=== PATIENT | female | born 1960 | race Caucasian/White ===

== ENCOUNTER 2018-11-08 09:01 | Inpatient (IN) ==
[2018-11-08 09:54] LABS: PROTIME 11.4 Seconds (11.0-16.0)
[2018-11-08 09:55] LABS: PTT 22.4 Seconds (22.3-41.8)
[2018-11-08 09:59] LABS: URINE SOURCE CLEAN CATCH
[2018-11-08 10:07] LABS: BILIRUBIN URINE NEGATIVE (NEGATIVE); BLOOD URINE NEGATIVE (NEGATIVE); COLOR YELLOW; GLUCOSE URINE NEGATIVE (NEGATIVE); KETONE URINE NEGATIVE (NEGATIVE); LEUKOCYTES URINE NEGATIVE (NEGATIVE); NITRITE URINE NEGATIVE (NEGATIVE); PROTEIN URINE TRACE mg/dL (NEGATIVE); SP GRAVITY URINE 1.022; TURBIDITY URINE CLEAR (CLEAR); UROBILINOGEN URINE NORMAL (NORMAL)
[2018-11-08 10:08] LABS: UR EPITHELIAL CELLS <10 /HPF (<10); URINE BACTERIA NEGATIVE /HPF; URINE RBC <10 /HPF (<10); URINE WBC <10 /HPF (<10)
--- NOTE | 2018-11-08 10:10 | Diag Imaging Result Doc PS360 ---
EXAM: CHEST-1 VIEW HISTORY: sob TECHNIQUE: Chest single view COMPARISON: 07/09/2018 FINDINGS: The lungs are well expanded. The heart is not enlarged. The vessels are not distended. There are no infiltrates. No effusion identified. IMPRESSION: Negative exam. Electronically signed by Alexsander Castano 11/08/2018 10:07 AM
[2018-11-08 10:14] LABS: BASO# 0.03 X1000 (0.0-0.2); BASO% 0.2 % (0.0-0.8); HEMATOCRIT 36.5 % (37.0-47.0); HEMOGLOBIN 12.5 g/dL (12.0-16.0); IMM GRAN# 0.22 X1000 (0.0-0.04); IMM GRAN% 1.3 % (0.0-0.5); INR 0.77; LYMPH# 1.12 X1000 (1.2-3.4); LYMPH% 6.6 % (20.5-51.1); MCH 34.2 PG (27-31); MCHC 34.2 g/dL (33-37); MCV 99.7 FL (81-99); MONO# 0.78 X1000 (0.11-0.59); MONO% 4.6 % (1.7-9.3); MPV 8.9 FL (7.4-10.4); NEUT# 14.84 X1000 (1.4-6.5); NEUT% 87.3 % (42.2-75.2); PLT 310 X1000 (130-400); RBC 3.66 XMIL (4.2-5.4); RDW 15.2 % (11.5-14.5); WBC 16.99 X1000 (4.8-10.8)
[2018-11-08 10:16] LABS: ALB/GLOB RATIO 2.4; ALBUMIN 4.3 g/dL (3.5-5.0); CALCIUM 9.3 mg/dL (8.8-10.2); POTASSIUM 4.6 mmol/L (3.5-5.1); TOTAL BILIRUBIN 0.19 mg/dL (0.20-1.00); TOTAL PROTEIN 6.1 g/dL (6.3-8.3)
[2018-11-08 10:16] LABS: ALLEN TEST YES; BE -0.5 mmoll (-3.0-3.0); BLOOD TYPE ARTERIAL; HCO3-(ACT) 24.5 mmoll (20.0-26.0); METHB 1.1 % (0.0-1.5); O2(CT) 16.7 mL/dL (15.0-23.0); PCO2(98.6) 21 mmHg (35-45); PO2(98.6) 108 mmHg (60-100); SAMPLE BLOOD; SAO2 99.8 % (95.0-100.0); THB 12.1 g/dL (11.5-17.4)
[2018-11-08 10:17] LABS: MODALITY ROOM AIR
[2018-11-08 10:18] LABS: pH(98.6) 7.58 (7.35-7.45)
[2018-11-08 10:18] LABS: BANDS 2 % (0-1); LYMPHS 8 % (21-51); MONO 2 % (1-9); SEGS 86 % (42-75)
[2018-11-08] MEDS ORDERED: TORADOL IV ONE (10:24)
--- NOTE | 2018-11-08 11:22 | Diag Imaging Result Doc PS360 ---
EXAM: CT ANGIOGRM PULMONARY ARTERIES HISTORY: difficulty breathing, left arm swollen TECHNIQUE: Emergency CT of the chest with intravenous contrast. Pulmonary arterial protocol with MIP images. COMPARISON: 05/15/2018 FINDINGS: Normal opacification of the pulmonary arteries and their major branches. No aortic aneurysm or dissection. No cardiomegaly. No pleural effusions. A calcified mediastinal and right hilar nodes with scattered granuloma. No consolidation. No bronchiectasis. No definite pulmonary edema. IMPRESSION: No pulmonary emboli. There is evidence of a prior granulomatous infection. This exam was performed using automated exposure control, adjustment of mA or kV according to patient size, and/or use of iterative reconstruction technique. Electronically signed by Alexsander Castano 11/08/2018 11:19 AM
[2018-11-08] MEDS ORDERED: DUONEB (A & A) INH ONE (12:28)
[2018-11-08] MEDS ORDERED: DILAUDID IV ONE (13:30)
[2018-11-08] MEDS ORDERED: ZOFRAN IV ONE (13:30)
[2018-11-08] MEDS ORDERED: ROCEPHIN 1 GM in NS 50 ML IV ONE (13:42)
--- NOTE | 2018-11-08 13:53 | PROVIDER DOCUMENTATION ---
This chart was entered by Anel Guevara Scribe, acting as scribe for Dominick Cid MD. HPI-Respiratory General - General Chief Complaint: SEPSIS ALERT - D Stated Complaint: SOB Time Seen by Provider: 11/08/18 09:23 Source: patient Allergies/Adverse Reactions: Patient Allergies Allergy/AdvReac Type Severity Reaction Status Date / Time No Known Allergies Allergy Verified 08/20/18 09:42 Home Medications: Home Medication List Medication Instructions Recorded Confirmed Last Taken Type Estrogens, Conjugated [Premarin] 1.25 mg PO DAILY 07/01/14 05/15/18 05/14/18 History ATORVAstatin [Lipitor] 20 mg PO DAILY 12/28/16 05/15/18 05/14/18 History Levothyroxine [Synthroid] 175 microgm PO DAILY 10/06/17 05/15/18 05/14/18 History Pantoprazole [Protonix] 40 mg PO DAILY@0700 #60 tab 10/15/17 05/15/18 05/14/18 Rx Cyclobenzaprine HCl 1 tab PO TID PRN 02/01/18 05/15/18 05/14/18 History Diltiazem HCl 1 tab PO TID 02/01/18 05/15/18 05/14/18 History Doxepin HCl 1 cap PO DAILY 02/01/18 05/15/18 05/14/18 History Hydroxyzine Pamoate [Vistaril] 50 mg PO Q6H PRN PRN 02/01/18 05/15/18 05/14/18 History Lisinopril 10 mg PO DAILY 02/01/18 05/15/18 05/14/18 History Lorazepam 1 tab PO TID 02/01/18 05/15/18 05/14/18 History Buprenorphine/Naloxone S.l. 1 ea SL BID #60 film 02/03/18 05/15/18 05/14/18 Rx [Suboxone 8 mg/2 mg Film] Metoclopramide [Reglan] 2.5 mg PO AC + HS #90 tab 05/20/18 Unknown Rx Nicotine Patch [Nicoderm Patch] 21 mg TD DAILY patch.td24 05/20/18 Unknown Rx Polyethylene Glycol 3350 [Miralax] 17 gm PO BID powder, packet 05/20/18 Unknown Rx Azithromycin [Zithromax Z-Heber] 250 mg PO DIRECTED #1 pkg 07/09/18 Unknown Rx Benzonatate [Tessalon Perle] 100 mg PO DAILY 10 Days #10 cap 07/09/18 Unknown Rx Doxycycline 100 mg PO BID 5 Days #10 tab 07/09/18 Unknown Rx Chlorzoxazone [Parafon Forte] 500 mg PO TID #30 tab 08/20/18 Unknown Rx Lidocaine [Lidoderm] 1 ea TOPICAL DAILY #1 pkg 08/20/18 Unknown Rx Ondansetron [Zofran] 4 mg PO Q6H PRN PRN #20 tab 08/20/18 Unknown Rx Prednisone 20 mg PO DIRECTED #18 tab 08/20/18 Unknown Rx Prednisone 50 mg PO DAILY #4 tab 08/20/18 Unknown Rx - History of Present Illness-Resp Nature of Presenting Problem: Patient is a 58 year old female who presents with shortness of breath and cough that started 1 week ago. Patient states she is currently on her third day of Levaquin. Denies fever. Quality of Pain: reports: tightness Severity in ED: reports: mild Onset/Duration: reports: 1 week ago Timing: reports: still present Cough Quality/Degree: reports: moderate Current Respiratory Medication Therapy: Initiated see nurses note Modifying Factors: improves with: nothing Associated Symptoms: reports: cough, shortness of breath Similar Symptoms Previously?: Yes Recently seen or treated by another doctor?: Yes Review of Systems - Adult - REVIEW OF SYSTEMS - ADULT Constitutional: reports: no symptoms reported. denies: chills, fever, fatique Eyes: reports: no symptoms reported Ears, Nose, Mouth & Throat: reports: no symptoms reported. denies: ear pain, sinus problem, throat pain Cardiovascular: reports: no symptoms reported Respiratory: reports: see HPI, cough, shortness of breath. denies: wheezing Gastrointestinal: reports: no symptoms reported Genitourinary: reports: no symptoms reported Musculoskeletal: reports: no symptoms reported Integumentary: reports: no symptoms reported Neurological: reports: no symptoms reported Psychiatric: reports: no symptoms reported Endocrine: reports: no symptoms reported Hematologic/Lymphatic: reports: no symptoms reported Allergic/Immunologic: reports: no symptoms reported All Other Systems: Reviewed and Negative Past History - Adult - PAST MEDICAL HISTORY-ADULT Review of Records: reports: Nursing Assessment Review, Medications Reviewed, Social history reviewed & non-contributory. Major Childhood Illnesses: reports: denies history Cardiovascular: reports: HTN, hyperlipidemia Respiratory: reports: denies history Gastrointestinal: reports: GERD Obstetrical/Gynecological: reports: ectopic , other (breast mass) Genitourinary: reports: denies history Musculoskeletal: reports: chronic pain, intervertebral disc disease, neck/back injury Neurological: reports: headaches/migraines Psychiatric: reports: anxiety, depression Endocrine/Immune: reports: thyroid disorder Other Conditions: reports: denies history - PRIOR SURGERIES/PROCEDURES Surgical/Procedure History: reports: appendectomy, cholecystectomy, hysterectomy , , hernia repair, breast - PRIOR HOSPITALIZATIONS Prior Hospitalizations: reports: for similar symptoms - IMMUNIZATION STATUS Childhood Immunizations: See Nurse Assessment Flu Vaccine: See Nurse Assessment - FAMILY HISTORY Family History: reviewed, not pertinent - SOCIAL HISTORY Smoking: cigarettes, less than 1 pack/day Provider spent 3-5 mins advising pt. on dangers of tobacco.: Discussed manners to quit use, and f/u contacts for add'l counseling. Substance Use: denies Physical Exam-General - PHYSICAL EXAM-ADULT Initial Vital Signs Reviewed: Yes - CONSTITUTIONAL General Appearance: alert, no apparent distress. negative: lethargic, slow to respond - HEAD, EARS, NOSE, MOUTH & THROAT HENMT: moist mucous membranes. negative: angioedema, hearing deficit - RESPIRATORY Respiratory: chest non-tender, rhonchi (bilateral). negative: respiratory distress, accessory muscle use, crackles - CARDIOVASCULAR Cardiovascular: normal peripheral pulses, regular rate, rhythm. negative: tachycardia, systolic murmur - GASTROINTESTINAL (ABDOMEN) Abdominal Exam: normal bowel sounds, non tender, soft. negative: guarding, rebound - MUSCULOSKELETAL Extremity: non-tender, normal inspection. negative: deformity, erythema - SKIN Integumentary: normal color, normal turgor, warm/dry. negative: cyanosis, ecchymosis, erythema, jaundice - NEUROLOGIC Neurologic: grossly normal. negative: aphasia, facial droop - PSYCHIATRIC Psych/Mental Status: normal mood/affect, oriented x 3. negative: anxious Progress - PLAN OF CARE/RESULTS Progress/Plan/Lab Results: Vital Signs - 8 hr 11/08/18 09:05 11/08/18 09:15 11/08/18 09:16 Temperature 97.9 F Pulse Rate 91 H 115 H 109 H Respiratory Rate 24 14 17 Blood Pressure 130/84 138/96 O2 Sat by Pulse Oximetry 98 99 99 11/08/18 09:20 11/08/18 09:30 11/08/18 09:40 Temperature Pulse Rate 105 H 105 H 100 H Respiratory Rate 23 22 26 H Blood Pressure O2 Sat by Pulse Oximetry 97 97 98 11/08/18 09:58 11/08/18 10:00 11/08/18 10:03 Temperature Pulse Rate 105 H 93 H Respiratory Rate 20 22 Blood Pressure 122/88 O2 Sat by Pulse Oximetry 99 100 98 11/08/18 10:04 11/08/18 10:10 11/08/18 10:19 Temperature Pulse Rate 98 H 96 H Respiratory Rate 18 26 H Blood Pressure O2 Sat by Pulse Oximetry 97 97 100 11/08/18 10:20 11/08/18 10:39 11/08/18 10:40 Temperature Pulse Rate 96 H 84 Respiratory Rate 19 23 Blood Pressure O2 Sat by Pulse Oximetry 99 100 100 11/08/18 10:50 11/08/18 11:00 11/08/18 11:02 Temperature Pulse Rate 85 89 93 H Respiratory Rate 18 22 21 Blood Pressure 121/83 O2 Sat by Pulse Oximetry 98 96 98 11/08/18 11:10 11/08/18 11:20 11/08/18 11:30 Temperature Pulse Rate 95 H 100 H 98 H Respiratory Rate 22 12 19 Blood Pressure O2 Sat by Pulse Oximetry 96 97 96 11/08/18 11:32 11/08/18 11:44 11/08/18 11:50 Temperature Pulse Rate 86 86 90 Respiratory Rate 24 18 18 Blood Pressure 131/85 O2 Sat by Pulse Oximetry 97 100 96 11/08/18 12:00 11/08/18 12:03 11/08/18 12:10 Temperature Pulse Rate 96 H 85 84 Respiratory Rate 21 20 16 Blood Pressure 112/89 O2 Sat by Pulse Oximetry 96 98 98 11/08/18 12:20 11/08/18 12:30 11/08/18 12:33 Temperature Pulse Rate 93 H 83 78 Respiratory Rate 19 24 20 Blood Pressure 119/75 O2 Sat by Pulse Oximetry 94 L 99 99 Laboratory Results - last 24 hr 11/08/18 11/08/18 11/08/18 09:32 09:32 09:32 WBC 16.99 H RBC 3.66 L Hgb 12.5 Hct 36.5 L MCV 99.7 H MCH 34.2 H MCHC 34.2 RDW Std Deviation 15.2 H Plt Count 310 MPV 8.9 Immature Gran % (Auto) 1.3 H Neut % (Auto) 87.3 H Lymph % (Auto) 6.6 L Gem % (Auto) 4.6 Eos % (Auto) 0.0 Baso % (Auto) 0.2 Immature Gran # (Auto) 0.22 H Neut # (Auto) 14.84 H Lymph # (Auto) 1.12 L Gem # (Auto) 0.78 H Eos # (Auto) 0.00 Baso # (Auto) 0.03 Segmented Neutrophils 86 H Band Neutrophils 2 H Lymphocytes 8 L Monocytes 2 Myelocytes 2.0 PT 11.4 INR 0.77 PTT (Actin FS) 22.4 Specimen Type Sample Site pH pCO2 pO2 HCO3 Base Excess Oxyhemoglobin ABG O2 Sat (Calculated) ABG O2 Saturation ABG Carboxyhemoglobin ABG Methemoglobin Mason Test A-a O2 Difference Total Hemoglobin Lactate Blood Gas Modality FiO2 % Sodium 138 Potassium 4.6 Chloride 103 Carbon Dioxide 19 L Anion Gap 16 BUN 34 H Creatinine 1.0 H Estimated GFR/1.73 m2 57 BUN/Creatinine Ratio 34 Glucose 125 H Calculated Osmolality 285 Calcium 9.3 Total Bilirubin 0.19 L AST 16 ALT 17 Alkaline Phosphatase 44 Creatine Kinase 45 Troponin T [id number]-[id number]-Fpxkbjjedjv Pept Total Protein 6.1 L Albumin 4.3 Globulin 1.8 Albumin/Globulin Ratio 2.4 Plasma Lactate Urine Source Urine Color Urine Turbidity Urine pH Ur Specific [place] Urine Protein Ur Glucose (Stick) Ur Ketones (Stick) Urine Blood Urine Nitrite Urine Bilirubin Urobilinogen Dipstick Urine Leukocytes Urine WBC (Auto) Urine RBC (Auto) U Epithel Cells (Auto) Urine Bacteria (Auto) 11/08/18 11/08/18 11/08/18 09:32 09:32 09:32 WBC RBC Hgb Hct MCV MCH MCHC RDW Std Deviation Plt Count MPV Immature Gran % (Auto) Neut % (Auto) Lymph % (Auto) Gem % (Auto) Eos % (Auto) Baso % (Auto) Immature Gran # (Auto) Neut # (Auto) Lymph # (Auto) Gem # (Auto) Eos # (Auto) Baso # (Auto) Segmented Neutrophils Band Neutrophils Lymphocytes Monocytes Myelocytes PT INR PTT (Actin FS) Specimen Type Sample Site pH pCO2 pO2 HCO3 Base Excess Oxyhemoglobin ABG O2 Sat (Calculated) ABG O2 Saturation ABG Carboxyhemoglobin ABG Methemoglobin Mason Test A-a O2 Difference Total Hemoglobin Lactate Blood Gas Modality FiO2 % Sodium Potassium Chloride Carbon Dioxide Anion Gap BUN Creatinine Estimated GFR/1.73 m2 BUN/Creatinine Ratio Glucose Calculated Osmolality Calcium Total Bilirubin AST ALT Alkaline Phosphatase Creatine Kinase Troponin T < 0.010 Dma-T-Hwnhcowdhac Pept 139 Total Protein Albumin Globulin Albumin/Globulin Ratio Plasma Lactate 2.0 Urine Source Urine Color Urine Turbidity Urine pH Ur Specific [place] Urine Protein Ur Glucose (Stick) Ur Ketones (Stick) Urine Blood Urine Nitrite Urine Bilirubin Urobilinogen Dipstick Urine Leukocytes Urine WBC (Auto) Urine RBC (Auto) U Epithel Cells (Auto) Urine Bacteria (Auto) 11/08/18 11/08/18 11/08/18 09:54 10:07 12:19 WBC RBC Hgb Hct MCV MCH MCHC RDW Std Deviation Plt Count MPV Immature Gran % (Auto) Neut % (Auto) Lymph % (Auto) Gem % (Auto) Eos % (Auto) Baso % (Auto) Immature Gran # (Auto) Neut # (Auto) Lymph # (Auto) Gem # (Auto) Eos # (Auto) Baso # (Auto) Segmented Neutrophils Band Neutrophils Lymphocytes Monocytes Myelocytes PT INR PTT (Actin FS) Specimen Type ARTERIAL Sample Site R RADIAL pH 7.58 H* pCO2 21 L pO2 108 H HCO3 24.5 Base Excess -0.5 Oxyhemoglobin 97.0 ABG O2 Sat (Calculated) 16.7 ABG O2 Saturation 99.8 ABG Carboxyhemoglobin 1.70 ABG Methemoglobin 1.1 Mason Test YES A-a O2 Difference 15.0 Total Hemoglobin 12.1 Lactate 2.00 Blood Gas Modality ROOM AIR FiO2 % 21.0 Sodium Potassium Chloride Carbon Dioxide Anion Gap BUN Creatinine Estimated GFR/1.73 m2 BUN/Creatinine Ratio Glucose Calculated Osmolality Calcium Total Bilirubin AST ALT Alkaline Phosphatase Creatine Kinase Troponin T Ywn-M-Wxbuunvyepr Pept Total Protein Albumin Globulin Albumin/Globulin Ratio Plasma Lactate 2.3 H Urine Source CLEAN CATCH Urine Color YELLOW Urine Turbidity CLEAR Urine pH 6.0 Ur Specific [place] 1.022 Urine Protein TRACE A Ur Glucose (Stick) NEGATIVE Ur Ketones (Stick) NEGATIVE Urine Blood NEGATIVE Urine Nitrite NEGATIVE Urine Bilirubin NEGATIVE Urobilinogen Dipstick NORMAL Urine Leukocytes NEGATIVE Urine WBC (Auto) <10 Urine RBC (Auto) <10 U Epithel Cells (Auto) <10 Urine Bacteria (Auto) NEGATIVE Orders Category Date Time Status Cardiac Monitoring DIRECTED Care 11/08/18 09:13 Active IV Insertion ORDERED Care 11/08/18 09:13 Completed Notify MD of + Sepsis Screen NOW Care 11/08/18 09:13 Active Notify Physician As Ordered Care 11/08/18 09:13 Active CHEST-1 VIEW [RAD] Stat Exams 11/08/18 09:[address] ANGIOGRM PULMONARY ARTERIES [CT] Stat Exams 11/08/18 10:12 Completed ABG [RESP] Routine Lab 11/08/18 10:07 Completed BLOOD CULTURE [BLDCUL] Stat Lab 11/08/18 09:38 Results BNP [PRO B-NATRIURETIC PEPTIDE] Stat Lab 11/08/18 09:32 Completed CBC WITH DIFF [HEME] Stat Lab 11/08/18 09:32 Completed CK PROFILE [SP CHEM] Stat Lab 11/08/18 09:32 Completed COMPREHENSIVE METABOLIC PANEL [CHEM] Stat Lab 11/08/18 09:32 Completed D-DIMER [COAG] Stat Lab 11/08/18 13:48 Uncollected LACTATE, PLASMA [CHEM] Lab 11/08/18 09:32 Completed LACTATE, PLASMA [CHEM] Lab 11/08/18 12:19 Completed LACTATE, PLASMA [CHEM] Lab 11/08/18 15:15 Uncollected PROTIME WITH INR [COAG] Stat Lab 11/08/18 09:32 Completed PTT [COAG] Stat Lab 11/08/18 09:32 Completed TROPONIN T Stat Lab 11/08/18 09:32 Completed URINALYSIS W/POSS RFLX CULT [URINALYSIS] Stat Lab 11/08/18 09:54 Completed Albuterol 2.5MG/Ipratrop 0.5MG [Duoneb (A & A)] Med 11/08/18 12:28 Discontinued 3 ml INH NOW ONE CefTRIAXONE [Rocephin] 1 gm Med 11/08/18 13:42 Active 0.9% Sodium Chloride Inj [Ns] 50 ml IV NOW Hydromorphone [Dilaudid] Med 11/08/18 13:30 Discontinued 0.5 mg IV NOW ONE Ketorolac [Toradol] Med 11/08/18 10:24 Discontinued 15 mg IV NOW ONE Ondansetron [Zofran] Med 11/08/18 13:30 Discontinued 4 mg IV NOW ONE Aerosol Treatments Routine Ot 11/08/18 12:28 Active Aerosol Treatments Stat [facility] 11/08/18 12:28 Active Oxygen Device Stat [facility] 11/08/18 09:13 Completed Result Diagrams: 11/08/18 09:32 11/08/18 09:32 - EKG 1 Time of EKG reading by physician:: 09:15 EKG Read and Signed by:: Dominick Cid EKG Interpretation (*Must complete 3 of following elements*): Abnormal Rate: 109 Rhythm: sinus tachycardia [place]: normal [place] Interval: normal Comments: otherwise normal ECG - XRAY 1 XRAY Study: Chest Impression: See EMR Report (EXAM: CHEST-1 VIEW HISTORY: sob TECHNIQUE: Chest single view COMPARISON: 07/09/2018 FINDINGS: The lungs are well expanded. The heart is not enlarged. The vessels are not distended. There are no infiltrates. No effusion identified. IMPRESSION: Negative exam. Electronically signed by Alexsander Castano 11/08/2018 10:07 AM 11/08/18 1007 Interpreting Physician: Alexasnder Castano MD Dictated Date/Time: 11/08/18 1007 cc: Dominick Cid MD; Berhane Reyes) - CT/MRI 1 CT Study: Angiogram Impression: See EMR Report ( EXAM: CT ANGIOGRM PULMONARY ARTERIES HISTORY: difficulty breathing, left arm swollen TECHNIQUE: Emergency CT of the chest with intravenous contrast. Pulmonary arterial protocol with MIP images. COMPARISON: 05/15/2018 FINDINGS: Normal opacification of the pulmonary arteries and their major branches. No aortic aneurysm or dissection. No cardiomegaly. No pleural effusions. A calcified mediastinal and right hilar nodes with scattered granuloma. No consolidation. No bronchiectasis. No definite pulmonary edema. IMPRESSION: No pulmonary emboli. There is evidence of a prior granulomatous infection. This exam was performed using automated exposure control, adjustment of mA or kV according to patient size, and/or use of iterative reconstruction technique. Electronically signed by Alexsander Castano 11/08/2018 11:19 AM 11/08/18 1119 Interpreting Physician: Alexsander Castano MD Dictated Date/Time: 11/08/18 1117 cc: Dominick Cid MD; Berhane Reyes) - CONSULTS/PCP/HOSPITALIST Notification #1 *Consult/PCP/Hospitalist*: ANDRES Blackwell for Hospitalist Time Discussed: 13:47 Reason/Comments: Dr. Cid consulted Rishi about patient. Consult Disposition: Will see in ED, Admit Departure - Departure Date of Disposition Decision: 11/08/18 Time of Disposition Decision: 13:47 DIAGNOSIS: SOB (shortness of breath), Lactate blood increase Disposition: ADMITTED INPATIENT 09 Certified Medical Emergency: Emergent Condition: Fair Referrals and Follow-Ups: Berhane Reyes [Primary Care Provider] - - Critical Care Note This patient required my direct & personal management of CC.: No Attestation - Physician/ BREE Attestation Patient care was provided by Advanced Practice Provider:: No The physician spent face to face time with patient:: Yes Advanced Practice Provider documentation review:: Supervising physician onsite and consulted in the evaluation and care of this patient. The physician did have a face to face encounter with the patient. This chart was documented by the indicated scribe, (Anel Guevara Scribe) and accurately reflects the services I performed and decisions made by me, Dominick Cid MD, as attested by the provider's signature.
[2018-11-08] MEDS ORDERED: XOPENEX NEB INH PRN (14:58)
[2018-11-08] MEDS ORDERED: TYLENOL PO PRN (14:58)
[2018-11-08] MEDS ORDERED: NS 1,000 ML IV ONE (14:58)
[2018-11-08] MEDS: NICODERM PATCH TD SCH (15:15)
[2018-11-08] MEDS: XOPENEX NEB INH SCH ×3 (15:30→22:47)
[2018-11-08] MEDS: ZITHROMAX 500 MG/NS 500 MG/250 ML IVPB IV SCH (15:38)
[2018-11-08] MEDS: SOLU-MEDROL IV SCH ×3 (15:38→23:45)
[2018-11-08] MEDS: LOVENOX SUBQ SCH (15:40)
--- NOTE | 2018-11-08 16:12 | HISTORY AND PHYSICAL ---
PRIMARY CARE PHYSICIAN: Dr. Berhane Reyes. CHIEF COMPLAINT: Shortness of breath. HISTORY OF PRESENT ILLNESS: Mrs. Duffy is a 58-year-old female with a history of chronic pain, hypertension, anxiety, depression, and nicotine dependence who presents with a little more than one week of shortness of breath, cough, and wheezing. She went to Dr. Reyes's office the week before last for shortness of breath, cough, and wheezing. She was given a Zithromax and steroid dose pack. Her symptoms never improved and in fact got somewhat worse. She went to a walk-in clinic over the weekend and was given Levaquin and another dose pack. Symptoms failed to improve once again and she came to our ER today for evaluation. She denies any fever. No chest pain. No abdominal pain, nausea, or vomiting. No lower extremity edema or orthopnea. She just has dyspnea, worse with exertion, and wheezing. In the ER her labs showed a white count of 17,000. She had a respiratory alkalosis and a very minimal increase in her plasma lactate at 2.3. As of now, no infection can be objectively found. We will admit her for further treatment and evaluation. PAST MEDICAL HISTORY: 1. Chronic back pain, status post L spine surgery x3. 2. Essential hypertension. 3. Anxiety and depression. 4. Chronic constipation. 5. Hypothyroidism. PAST SURGICAL HISTORY: L spine x3, cholecystectomy, thyroidectomy, breast biopsy, C section, hernia repair, and tubal ligation. SOCIAL HISTORY: She smokes half a pack of cigarettes a day. She denies alcohol or drug use. ALLERGIES: No known drug allergies. HOME MEDICATIONS: Yet been compiled by the nursing staff. REVIEW OF SYSTEMS: A 14-point review of systems was obtained and found to be negative with the exception of the HPI. PHYSICAL EXAMINATION: VITAL SIGNS: Blood pressure 115/67, heart rate 70, respiratory rate 18, O2 saturation 98% on nasal cannula, temperature 97.9. GENERAL: This is an overweight, somewhat disheveled appearing, 58-year-old female lying in hospital bed in no acute distress. NEUROLOGICAL: She is awake, alert, and oriented. Follows commands without focal deficits. HEENT: Head is atraumatic and normocephalic. Pupils are equal, round and reactive to light. Oral mucosa is dry. NECK: Trachea is midline. There is no JVD. CHEST: Inspiratory and expiratory wheezes bilaterally. CARDIOVASCULAR: Slightly tachycardic but regular. S1 and S2 are noted. No murmurs. GASTROINTESTINAL: Soft. Nondistended and nontender. Bowel sounds are active. EXTREMITIES: No edema. Pulses are 1+ bilaterally. DIAGNOSTIC DATA: Chest x-ray shows no acute process. Pulmonary arteriogram negative for PE; evidence of prior granulomatous infection noted. WBC 16.99, hemoglobin 12.5, hematocrit 36.5, platelet count 310,000. INR 0.77. ABG on room air: pH 7.58, CO2 21, anion gap 108, bicarb 24.5. Chemistries: Sodium 138, potassium 4.6, chloride 103, CO2 19, anion gap 16, BUN 34, creatinine 1, glucose 125, calcium 9.3, bilirubin 0.19, AST 16, ALT 17, alkaline phosphatase 44. CK 45. Troponin negative x1 set. proBNP 139. Protein 6.1. Albumin 4.3. Lactic acid 2.3. UA is negative. ASSESSMENT AND PLAN: 1. Acute bronchitis with failed outpatient treatment: No radiographic evidence of pneumonia, either on x-ray or CT. Blood cultures have been obtained. Will continue azithromycin and Rocephin, breathing treatments, and aggressive pulmonary toilet. Will add intravenous steroids. If not improvement in the next 24 to 48 hours, would consider Pulmonary consultation. 2. Negligible elevation of lactate: Likely volume depletion, which is consistent with her physical exam. She does have a white count of 17,000, however she has been on steroids for over a week. Will continue to monitor her culture data and adjust any antibiotics as necessary. Will also check for the flu. 3. Hypertension: Continue home medications once reconciled. 4. Anxiety and depression: Stable. Continue home medications once reconciled. 5. Hypothyroidism, stable: Continue home medications. 6. Deep venous thrombosis prophylaxis with Lovenox. Further recommendations to follow. Dictated by ANDRES Weaver for Jose Peacock MD cc: ANDRES Weaver MD Neil Yeager, MD
[2018-11-08] MEDS: NORCO-5 PO PRN ×2 (17:00→18:51)
[2018-11-08] MEDS: ZOFRAN IV PRN (21:52)
[2018-11-08] MEDS: ATIVAN PO PRN (23:02)
[2018-11-09] MEDS: NORCO-5 PO PRN ×2 (01:10→07:10)
[2018-11-09] MEDS: XOPENEX NEB INH SCH ×6 (03:35→23:52)
[2018-11-09] MEDS: SOLU-MEDROL IV SCH ×3 (06:02→20:01)
[2018-11-09 07:26] LABS: BASO# 0.02 X1000 (0.0-0.2); BASO% 0.1 % (0.0-0.8); HEMATOCRIT 40.9 % (37.0-47.0); HEMOGLOBIN 13.8 g/dL (12.0-16.0); IMM GRAN# 0.22 X1000 (0.0-0.04); IMM GRAN% 1.3 % (0.0-0.5); LYMPH# 1.28 X1000 (1.2-3.4); LYMPH% 7.5 % (20.5-51.1); MCH 33.5 PG (27-31); MCHC 33.7 g/dL (33-37); MCV 99.3 FL (81-99); MONO# 0.62 X1000 (0.11-0.59); MONO% 3.6 % (1.7-9.3); MPV 8.9 FL (7.4-10.4); NEUT% 87.5 % (42.2-75.2); PLT 333 X1000 (130-400); RBC 4.12 XMIL (4.2-5.4); RDW 15.1 % (11.5-14.5); WBC 17.14 X1000 (4.8-10.8)
[2018-11-09 07:39] LABS: AGAP 17; BUN 23 mg/dL (8-22); CALCIUM 8.7 mg/dL (8.8-10.2); CHLORIDE 103 mmol/L (98-107); COSMO 288; CREATININE 0.9 mg/dL (0.5-0.9); ESTIMATED GFR > 60; GLUCOSE 157 mg/dL (70-104); MAGNESIUM 2.3 mg/dL (1.5-2.7); SODIUM 141 mmol/L (136-145); TCO2 21 mmol/L (25-35)
[2018-11-09 07:40] LABS: LYMPHS 8 % (21-51); MONO 2 % (1-9); SEGS 90 % (42-75)
--- NOTE | 2018-11-09 07:59 | EKG Report ---
Test Performed on : 11/08/2018 09:15:01 AM Test Reason : ED. NO EKG ORDER FOR MUSE Blood Pressure : / mmHG Vent. Rate : 109 BPM Atrial Rate : 109 BPM P-R Int : 134 ms QRS Dur : 084 ms QT Int : 330 ms P-R-T Axes : 066 037 076 degrees QTc Int : 444 ms Sinus tachycardia. Otherwise normal ECG When compared with ECG of 15-MAY-2018 06:29, Vent. rate has increased BY 59 BPM QT has lengthened Unconfirmed Result
[2018-11-09] MEDS: NICODERM PATCH TD SCH (09:45)
[2018-11-09] MEDS: ATIVAN PO PRN (10:05)
--- NOTE | 2018-11-09 11:19 | PROGRESS NOTE ---
DATE: 11/09/2018 SUBJECTIVE: The patient reports breathing much better. She denies shortness of breath or no fever. She reports mild back pain, and she takes pain medication on a regular basis for that. OBJECTIVE: Vital Signs: Temperature 98.7 degrees, heart rate 95, respiratory rate 16, blood pressure 132/82, O2 saturation 99% on room air. General examination: This is a 58-year-old female, lying in bed in no acute distress. Cardiovascular exam: S1, S2 heard. No murmurs, gallops, or rubs. Regular rate and rhythm. Respiratory exam: Minimal wheezing noted in both pulmonary bases. Patient not using any accessory muscles or having work of breathing. Abdomen: Soft. Nontender to palpation. Nondistended. Bowel sounds present. No organomegaly. Extremities: No clubbing, cyanosis, or edema. Peripheral pulses present in both legs. Neurological exam: Patient is alert and oriented x3. Moves 4 extremities. LABORATORY DATA: White cell count 17.14, hemoglobin 13.8, hematocrit is 40.9, platelets 333. The BMP is unremarkable today. ASSESSMENT AND PLAN: 1. Acute bronchitis. Clinically, this patient is doing better. We will continue with Rocephin and azithromycin, on breathing treatments as well. I think we will continue keeping this patient in the hospital. If the patient is feeling better, we can discharge her within the next 24 to 48 hours. 2. Hypertension. Blood pressure is under control. We will continue with same management. 3. Anxiety and depression. Stable. We will continue home medications. 4. Hypothyroidism. Will continue home medications. 5. Back pain. We will increase the doses of [place] from 5 to 7.5 mg oral every 4 hours as needed. We will continue to monitor. cc: Jose Peacock MD
[2018-11-09] MEDS: NORCO-7.5 PO PRN ×3 (12:06→20:00)
[2018-11-09] MEDS: ROCEPHIN 1 GM in NS 50 ML IV SCH (13:10)
[2018-11-09] MEDS: LOVENOX SUBQ SCH (14:45)
[2018-11-09] MEDS: ZITHROMAX 500 MG/NS 500 MG/250 ML IVPB IV SCH (15:07)
[2018-11-09] MEDS: ZOFRAN IV PRN (16:06)
[2018-11-09] MEDS ORDERED: FLEXERIL PO PRN (16:16)
[2018-11-09] MEDS: ATIVAN PO SCH (20:00)
[2018-11-09] MEDS ORDERED: SINEQUAN PO SCH (21:00)
[2018-11-10] MEDS: SOLU-MEDROL IV SCH ×3 (01:05→08:31)
[2018-11-10] MEDS: NORCO-7.5 PO PRN ×4 (01:34→13:40)
[2018-11-10] MEDS: XOPENEX NEB INH SCH ×2 (03:10→07:47)
[2018-11-10] MEDS: PROTONIX PO SCH ×2 (05:52→08:31)
[2018-11-10] MEDS: SYNTHROID PO SCH ×2 (05:52→08:31)
[2018-11-10 07:07] LABS: BASO# 0.01 X1000 (0.0-0.2); BASO% 0.1 % (0.0-0.8); EOS# 0.04 X1000 (0.0-0.7); EOS% 0.2 % (0.0-10.0); HEMATOCRIT 36.4 % (37.0-47.0); HEMOGLOBIN 12.1 g/dL (12.0-16.0); IMM GRAN# 0.26 X1000 (0.0-0.04); IMM GRAN% 1.4 % (0.0-0.5); LYMPH# 1.58 X1000 (1.2-3.4); LYMPH% 8.6 % (20.5-51.1); MCH 33.5 PG (27-31); MCHC 33.2 g/dL (33-37); MCV 100.8 FL (81-99); MONO# 1.17 X1000 (0.11-0.59); MONO% 6.4 % (1.7-9.3); MPV 8.8 FL (7.4-10.4); NEUT# 15.32 X1000 (1.4-6.5); NEUT% 83.3 % (42.2-75.2); PLT 280 X1000 (130-400); RBC 3.61 XMIL (4.2-5.4); RDW 15.2 % (11.5-14.5); WBC 18.38 X1000 (4.8-10.8)
[2018-11-10 07:34] LABS: AGAP 11; BUN 25 mg/dL (8-22); CALCIUM 8.5 mg/dL (8.8-10.2); CHLORIDE 104 mmol/L (98-107); COSMO 288; CREATININE 0.8 mg/dL (0.5-0.9); ESTIMATED GFR > 60; GLUCOSE 111 mg/dL (70-104); MAGNESIUM 2.4 mg/dL (1.5-2.7); SODIUM 142 mmol/L (136-145); TCO2 27 mmol/L (25-35)
[2018-11-10] MEDS ORDERED: PREMARIN PO SCH (09:00)
[2018-11-10] MEDS ORDERED: PRINIVIL PO SCH (09:00)
[2018-11-10] MEDS ORDERED: LIDODERM TOP SCH (09:00)
[2018-11-10] MEDS ORDERED: LIPITOR PO SCH (09:00)
[2018-11-10] MEDS: ATIVAN PO SCH (09:42)
[2018-11-10] MEDS: NICODERM PATCH TD SCH (09:44)
[2018-11-10 12:14] VITALS: BP 119/66
[2018-11-10] MEDS: ROCEPHIN 1 GM in NS 50 ML IV SCH (15:46)
[2018-11-10] MEDS: ZITHROMAX 500 MG/NS 500 MG/250 ML IVPB IV SCH (15:47)
--- NOTE | 2018-11-10 21:20 | DISCHARGE SUMMARY ---
ADMISSION DATE: 11/09/2018 DISCHARGE DATE: 11/10/2018 ADMISSION DIAGNOSES: 1. Acute bronchitis, failed outpatient treatment. 2. Negligible elevation of lactate. 3. Hypertension. 4. Anxiety and depression. 5. Hypothyroidism. 6. Nicotine dependence. DISCHARGE DIAGNOSES: 1. Acute bronchitis, failed outpatient treatment. 2. Negligible elevation of lactate. 3. Hypertension. 4. Anxiety and depression. 5. Hypothyroidism. 6. Nicotine dependence. CONSULTATIONS: None. DIAGNOSTIC PROCEDURES AND FINDINGS: Chest x-ray 11/08/2018: Negative exam. EKG 11/08/2018: Sinus tachycardia; nonspecific ST and T changes. Pulmonary arteriogram 11/08/2018: No pulmonary emboli; evidence of prior granulomatous infection. HOSPITAL COURSE: Mrs. Duffy is a 58-year-old female with a history of nicotine dependence, who was admitted yesterday for failed outpatient treatment of acute bronchitis. She is having shortness of breath and wheezing and nonproductive cough. She was seen twice on outpatient basis without any improvement with p.o. antibiotics and steroids. She came to the ER for continued evaluation. She did not have any chest x-ray or CT scan abnormalities to suggest acute infection. She did have an elevated white count but she is on steroids. She also had a very negligible elevation of her lactate at 2.3, which was felt to be likely secondary to volume depletion. We did swab her for the flu, which was negative. Blood cultures were drawn as well and are tentatively negative. We started her on IV antibiotics, IV steroids, and breathing treatments. We put her on a nicotine patch and discussed with her nicotine cessation. This morning she feels much better. Her breathing has improved and her vital signs have remained adequate. She is maintaining O2 saturation of 96% on room air. She has been afebrile. She is now stable to go home. DISCHARGE MEDICATIONS: Premarin 1.25 mg p.o. daily, atorvastatin 20 mg daily, Synthroid 100 mcg p.o. daily, Protonix 40 mg daily, cyclobenzaprine 10 mg p.o. t.i.d. as needed, doxepin 25 mg p.o. at bedtime, lisinopril 10 mg daily, Ativan 1 mg p.o. b.i.d., lidocaine patch one daily topically, Medrol Dosepak as directed, Levaquin 750 mg p.o. for seven days, [place] 7.5 q four hours p.r.n. pain, Xopenex 1.25 mg inhaled every four hours as needed. DISCHARGE DIET: Heart healthy. DISCHARGE ACTIVITY: Resume activity as tolerated. DISPOSITION AND OTHER DISCHARGE INSTRUCTIONS: The patient is discharged home to self-care. She is to follow up with Dr. Reyes, her PCP, within the week, or sooner if needed. She is to continue all medications as directed. Return to the ER or call 911 for worsening complaints or concerns. We have counseled her extensively on cigarette cessation. All questions answered. DISCHARGE TIME: Greater than 35 minutes. Dictated by ANDRES Weaver for Jose Peacock MD Addendum: Patient seen and examined by myself. Agree with ANDRES note. It reflects my assessment and plan. Patient is being discharged from hospital in stable condition to home and follow up with primary care doctor in a week. cc: ANDRES Weaver MD Neil Yeager, MD MTDD
== END 2018-11-10 16:32 | disposition home or self-care (01) | DRG 202 ==
LOC: ED 09:01 → 4N 09:01
PROVIDERS: ATTEND Internal Medicine
CPT/HCPCS: 71010; 71045; 71275; 80048; 80053; 81001; 82550; 82805; 83605; 83735; 83880; 84484; 85025; 85379; 85610; 85730; 87040; 87275; 87276; 87804; 93005; 94640; 94760; 94761; 94799; 96365; 96366; 96367; 96375; 99285; A9270; J0456; J0696; J1170; J1650; J1885; J2405; J2930; J7030; Q9967

== ENCOUNTER 2019-01-27 15:42 | Inpatient (IN) ==
[2019-01-27] MEDS ORDERED: LIBRIUM PO PRN (17:08)
[2019-01-27] MEDS ORDERED: ZOFRAN IV PRN (17:08)
[2019-01-27] MEDS ORDERED: TUBERSOL ID ONE (17:08)
[2019-01-27] MEDS ORDERED: BENTYL PO PRN (17:08)
[2019-01-27] MEDS ORDERED: SENOKOT PO PRN (17:08)
[2019-01-27] MEDS ORDERED: SINEMET 25/100 PO PRN (17:08)
[2019-01-27] MEDS ORDERED: MAALOX PLUS LIQUID PO PRN (17:08)
[2019-01-27] MEDS ORDERED: NICODERM PATCH TD PRN (17:08)
[2019-01-27] MEDS ORDERED: PHENOBARBITAL IV PRN (17:08)
[2019-01-27] MEDS ORDERED: D5W 1,000 ML IV PRN (17:08)
[2019-01-27] MEDS ORDERED: ROBAXIN PO PRN (17:08)
[2019-01-27] MEDS ORDERED: DULCOLAX PR PRN (17:08)
[2019-01-27] MEDS ORDERED: TYLENOL PO PRN (17:08)
[2019-01-27] MEDS ORDERED: DESYREL PO PRN (17:08)
[2019-01-27] MEDS ORDERED: IMODIUM PO PRN (17:08)
[2019-01-27 17:53] LABS: HEMATOCRIT 36.8 % (37.0-47.0); HEMOGLOBIN 12.3 g/dL (12.0-16.0); MCH 33.3 PG (27-31); MCHC 33.4 g/dL (33-37); MCV 99.7 FL (81-99); MPV 9.2 FL (7.4-10.4); RBC 3.69 XMIL (4.2-5.4); RDW 12.1 % (11.5-14.5); WBC 9.66 X1000 (4.8-10.8)
[2019-01-27 18:06] LABS: AMYLASE 62 U/L (20-200); LIPASE 32 U/L (13-60)
[2019-01-27 18:09] LABS: INR 0.87; PROTIME 12.3 Seconds (11.0-16.0)
[2019-01-27 18:20] LABS: AGAP 11; ALBUMIN 4.1 g/dL (3.5-5.0); ALKALINE PHOSPHATASE 52 U/L (32-104); BUN 12 mg/dL (8-22); CALCIUM 9.1 mg/dL (8.8-10.2); CHLORIDE 108 mmol/L (98-107); COSMO 281; CREATININE 0.8 mg/dL (0.5-0.9); ESTIMATED GFR > 60; GLUCOSE 104 mg/dL (70-104); GOT 13 U/L (10-30); GPT 11 U/L (10-36); POTASSIUM 3.7 mmol/L (3.5-5.1); SODIUM 141 mmol/L (136-145); TCO2 22 mmol/L (25-35); TOTAL BILIRUBIN < 0.15 mg/dL (0.20-1.00); TOTAL PROTEIN 6.6 g/dL (6.3-8.3)
[2019-01-27] MEDS: ATARAX PO PRN (18:34)
[2019-01-27] MEDS: MOTRIN PO PRN (18:34)
[2019-01-27] MEDS: SUBOXONE 2 MG/0.5 MG FILM SL SCH (21:04)
[2019-01-28] MEDS: ZOFRAN ODT PO PRN ×2 (00:18→15:07)
[2019-01-28] MEDS: MOTRIN PO PRN ×2 (03:09→23:39)
[2019-01-28] MEDS: PROTONIX PO SCH (06:21)
[2019-01-28] MEDS: SUBOXONE 2 MG/0.5 MG FILM SL SCH ×2 (08:19→20:41)
[2019-01-28] MEDS: VITAMIN B-1 PO SCH (08:20)
[2019-01-28] MEDS: THERA M PLUS PO SCH (08:20)
[2019-01-28] MEDS: FOLIC ACID PO SCH (08:20)
[2019-01-28 08:37] LABS: URINE SOURCE CLEAN CATCH
[2019-01-28 08:40] LABS: BILIRUBIN URINE NEGATIVE (NEGATIVE); BLOOD URINE NEGATIVE (NEGATIVE); CLARITY CLEAR (CLEAR); COLOR YELLOW; GLUCOSE URINE NEGATIVE (NEGATIVE); KETONE URINE NEGATIVE (NEGATIVE); LEUKOCYTES URINE TRACE (NEGATIVE); NITRITE URINE NEGATIVE (NEGATIVE); PROTEIN URINE TRACE mg/dL (NEGATIVE); SP GRAVITY URINE 1.015; UROBILINOGEN URINE NORMAL
[2019-01-28 08:52] LABS: UR AMPHETAMINES QUAL NONE DETECTED (NONE DETECT); UR BARBITUATES QUAL NONE DETECTED (NONE DETECT); UR BENZODIAZEPIN QUAL PRESUMPTIVE POSITIVE (NONE DETECT); UR CANNABINOIDS QUAL PRESUMPTIVE POSITIVE (NONE DETECT); UR COCAINE QUAL NONE DETECTED (NONE DETECT); UR METHADONE QUAL NONE DETECTED (NONE DETECT); UR METHAMPHETAMINE QUAL NONE DETECTED (NONE DETECT); UR OPIATES QUAL NONE DETECTED (NONE DETECT); UR OXYCODONE QUAL NONE DETECTED (NONE DETECT); UR PCP QUAL NONE DETECTED (NONE DETECT); UR PROPOXYPHENE QUAL NONE DETECTED (NONE DETECT); UR TCA QUAL PRESUMPTIVE POSITIVE (NONE DETECT)
[2019-01-28 08:54] LABS: URINE EPITHELIAL CELLS >10 /HPF (<10); URINE WBC <10 /HPF (<10)
[2019-01-28] MEDS ORDERED: TORADOL IM ONE (10:35)
[2019-01-28] MEDS ORDERED: VOLTAREN PO PRN (13:30)
[2019-01-28] MEDS: SINEQUAN PO SCH (15:07)
[2019-01-28] MEDS: PREMARIN PO SCH (15:12)
[2019-01-28] MEDS: LIPITOR PO SCH (20:41)
[2019-01-28] MEDS: NEURONTIN PO SCH (20:41)
[2019-01-28] MEDS: FLEXERIL PO SCH (20:41)
[2019-01-28] MEDS: ROBAXIN PO SCH (20:42)
[2019-01-28] MEDS ORDERED: AMITIZA PO SCH (21:00)
[2019-01-28] MEDS: SEROQUEL PO PRN (21:39)
--- NOTE | 2019-01-28 22:32 | PROGRESS NOTE ---
DATE: 01/28/2019 SUBJECTIVE: Patient notes that she feels terrible, still having lots of muscle aches. Denies any fevers or chills. Still having mild diarrhea, some occasional abdominal cramping. PHYSICAL EXAMINATION: Vital Signs: Reviewed. Patient is awake, alert. She is in no current respiratory distress although she is still somewhat ill-appearing. Temperature 97 degrees, pulse 67, respiratory 18, BP 127/73. General: Patient is standing in the room walking about. HEENT: Normocephalic. Neck: Supple. Cardiovascular: Regular rate. No murmurs. Chest: Clear and nonlabored. Abdomen: Soft. Positive bowel sounds. Mildly tender. Extremities: Moves all extremities. Neurologic: No changes. ASSESSMENT: 1. Nausea, vomiting. 2. Abdominal pain. 3. Myalgias. 4. Paresthesias. 5. Paroxysmal sweating. 6. Chronic anxiety. 7. Chronic pain from previous bulging disks and lumbar surgeries. 8. Opiate abuse, withdrawal and stabilization. PLAN: We will continue patient in the hospital. Continue Suboxone. Continue symptomatic care. Further orders as needed. Continue counseling. cc: Trevor Morocho MD
[2019-01-29] MEDS: ATARAX PO PRN (01:11)
[2019-01-29] MEDS: ZOFRAN ODT PO PRN ×4 (02:07→17:34)
[2019-01-29] MEDS: PROTONIX PO SCH (06:05)
[2019-01-29] MEDS: SYNTHROID PO SCH (06:06)
[2019-01-29] MEDS ORDERED: PANTOPRAZOLE SODIUM 20 MG PO SCH (07:00)
[2019-01-29] MEDS: ROBAXIN PO SCH ×2 (08:36→20:26)
[2019-01-29] MEDS: PREMARIN PO SCH (08:36)
[2019-01-29] MEDS: FLEXERIL PO SCH ×2 (08:36→20:27)
[2019-01-29] MEDS: FOLIC ACID PO SCH (08:37)
[2019-01-29] MEDS: AMITIZA PO SCH ×2 (08:37→17:32)
[2019-01-29] MEDS: VITAMIN B-1 PO SCH (08:37)
[2019-01-29] MEDS: THERA M PLUS PO SCH (08:37)
[2019-01-29] MEDS: SINEQUAN PO SCH (08:37)
[2019-01-29] MEDS: SUBOXONE 2 MG/0.5 MG FILM SL SCH (08:37)
--- NOTE | 2019-01-29 08:43 | HISTORY AND PHYSICAL ---
CHIEF COMPLAINT: Nausea, vomiting. HISTORY OF PRESENT ILLNESS: The patient is a 58-year-old female who notes she has been on Suboxone in the past. She weaned herself off and thinks this may have been too quick as she has started having withdrawal symptoms and started re-abusing. She currently has tried to stop abusing opiates again and is having abdominal pain, nausea, vomiting and myalgias. SOCIAL HISTORY: Patient is . She is on disability. Lives at home in [place]. PAST MEDICAL HISTORY: Chronic anxiety, chronic pain. She has had 3 lumbar surgeries on L1, 3 and 5. She currently has 2 bulging disks. She has chronic anxiety, depression. She has hypertension. MEDICATIONS: 1. ? b.i.d. 2. Lisinopril 10. 3. Atorvastatin 20. 4. Synthroid 150. 5. Pantoprazole 20. 6. Ativan 2 three times daily. 7. Premarin. 8. Doxepin. ALLERGIES: No known drug allergies. REVIEW OF SYSTEMS: CINA score is elevated at 16 secondary to nausea, vomiting, abdominal pain, cramping, diarrhea, body aches, constant runny nose, watery eyes, subjective fevers, chills, paroxysmal sweating. She is restless, anxious, unable to sit still. Denies any headaches, blurred vision, change in vision. Denies any focalized numbness, tingling, weakness in her extremities. Denies dysuria, urinary frequency. Denies skin rashes or weight loss. SUBSTANCE ABUSE HISTORY: The patient was in [facility] for detox in January of 2018. She started on Suboxone and remained sober for 5 months while on Suboxone that she weaned off, remained sober for 1 more month, and then started re-abusing. States she is tired of chasing pills. Started alcohol at age 12, currently drinks socially. Started marijuana at age 18, currently uses socially. Started depressants at 20s. Currently uses less than prescribed. Started opiates at 28 secondary to pain. Currently is taking at least 4 or 5 Ceiba a day. Started smoking at 40, currently smokes at least half a pack a day. She is down from 1-1/2 packs a day. PHYSICAL EXAMINATION: VITAL SIGNS: Reviewed. Stable. GENERAL: Patient is awake, alert, oriented. She is in no current respiratory distress. HEENT: Normocephalic. NECK: Supple. CARDIOVASCULAR: Regular rate. No murmurs. CHEST: Clear, nonlabored. ABDOMEN: Soft, nondistended. EXTREMITIES: Moves all extremities. NEUROLOGIC: She is awake, alert. She is fidgety, has difficulty concentrating, visible sweating. ASSESSMENT: 1. Nausea, vomiting. 2. Abdominal pain. 3. Myalgias. 4. Paresthesias. 5. Paroxysmal sweating. 6. Chronic pain. 7. Hypertension. 8. High cholesterol. 9. Hypothyroidism. 10. Opiate abuse, withdrawal and stabilization. PLAN: We will admit patient the hospital, place her on Suboxone, begin counseling. Further orders as needed. cc: Trevor Morocho MD MTDD
[2019-01-29] MEDS: NEURONTIN PO SCH ×2 (08:53→20:27)
[2019-01-29] MEDS ORDERED: SUBOXONE 2 MG/0.5 MG FILM SL ONE (11:45)
[2019-01-29] MEDS: SEROQUEL PO PRN (20:26)
[2019-01-29] MEDS: SUBOXONE 8 MG/2 MG FILM SL SCH (20:26)
[2019-01-29] MEDS: PHENERGAN PO PRN (20:27)
[2019-01-29] MEDS: LIPITOR PO SCH (20:27)
--- NOTE | 2019-01-30 00:18 | PROGRESS NOTE ---
DATE: 01/29/2019 SUBJECTIVE: Patient notes she is still having some withdrawal symptoms of nausea, occasional vomiting. Still having muscle aches and jitteriness. Did not sleep last night. PHYSICAL EXAMINATION: Vital Signs: Reviewed and stable. General: She is awake, alert. She is in no current respiratory distress. HEENT: Normocephalic. Neck: Supple. Cardiovascular: Regular rate. Chest: Clear. Abdomen: Soft. Extremities: Moves all extremities. Neurologic: No changes. ASSESSMENT: 1. Nausea, vomiting. 2. Abdominal pain. 3. Myalgias. 4. Paresthesias. 5. Paroxysmal sweating. 6. Opiate abuse, withdrawal and stabilization. PLAN: At this point, we are going to increase her Suboxone to 8/2. We will continue counseling. We will add Phenergan and we will follow. cc: Trevor Morocho MD
[2019-01-30] MEDS: PHENERGAN PO PRN ×4 (03:14→21:32)
[2019-01-30] MEDS: PROTONIX PO SCH (06:01)
[2019-01-30] MEDS: SYNTHROID PO SCH (06:01)
[2019-01-30] MEDS: MOTRIN PO PRN ×2 (06:01→14:49)
[2019-01-30] MEDS: PREMARIN PO SCH (09:13)
[2019-01-30] MEDS: ROBAXIN PO SCH ×2 (09:13→21:23)
[2019-01-30] MEDS: FLEXERIL PO SCH ×2 (09:14→21:23)
[2019-01-30] MEDS: VITAMIN B-1 PO SCH (09:14)
[2019-01-30] MEDS: SUBOXONE 8 MG/2 MG FILM SL SCH ×2 (09:14→21:23)
[2019-01-30] MEDS: FOLIC ACID PO SCH (09:14)
[2019-01-30] MEDS: THERA M PLUS PO SCH (09:14)
[2019-01-30] MEDS: SINEQUAN PO SCH (09:14)
[2019-01-30] MEDS: NEURONTIN PO SCH ×2 (09:14→21:23)
[2019-01-30] MEDS: AMITIZA PO SCH ×3 (09:14→16:04)
[2019-01-30] MEDS ORDERED: SUBOXONE 2 MG/0.5 MG FILM SL ONE (14:00)
[2019-01-30] MEDS: ATARAX PO PRN (15:54)
--- NOTE | 2019-01-30 16:34 | PROGRESS NOTE ---
DATE: 01/30/2019 SUBJECTIVE: Patient notes that she feels better, but still has some symptoms in the mid- afternoon. Denies any fevers or chills. Notes that she had some abdominal pain yesterday afternoon, some mild tremors in her extremities. Denies any chest pains or palpitations. OBJECTIVE: Vital Signs: Reviewed and stable. General: She is awake, alert, oriented. She is in no current respiratory distress. HEENT: Normocephalic, atraumatic. ALYSSA. Neck: Supple. No JVD. Cardiovascular: Regular rate. No murmurs. Chest: Clear, nonlabored. Abdomen: Soft. Extremities: Moves all extremities. ASSESSMENT: 1. Nausea and vomiting. 2. Abdominal pain. 3. Myalgias. 4. Paresthesias. 5. Opiate abuse, withdrawal, and stabilization. PLAN: The patient will continue in the hospital. We are going to give her an extra dose of Suboxone this afternoon and see if that helps some of her withdrawal symptoms. Currently she is on Phenergan. Continue counseling. Further orders as needed. cc: Trevor Morocho MD
[2019-01-30] MEDS: LIPITOR PO SCH (21:23)
[2019-01-30] MEDS: SEROQUEL PO PRN (21:32)
[2019-01-31] MEDS: PHENERGAN PO PRN ×2 (03:00→10:40)
[2019-01-31] MEDS: PROTONIX PO SCH (06:08)
[2019-01-31] MEDS: SYNTHROID PO SCH (06:08)
[2019-01-31] MEDS ORDERED: LEXAPRO PO SCH (09:00)
[2019-01-31] MEDS: VITAMIN B-1 PO SCH (09:40)
[2019-01-31] MEDS: PREMARIN PO SCH (09:40)
[2019-01-31] MEDS: THERA M PLUS PO SCH (09:40)
[2019-01-31] MEDS: ROBAXIN PO SCH (09:40)
[2019-01-31] MEDS: FLEXERIL PO SCH (09:40)
[2019-01-31] MEDS: FOLIC ACID PO SCH (09:41)
[2019-01-31] MEDS: SINEQUAN PO SCH (09:41)
[2019-01-31] MEDS: SUBOXONE 8 MG/2 MG FILM SL SCH (09:41)
[2019-01-31] MEDS: NEURONTIN PO SCH (09:41)
[2019-01-31] MEDS: AMITIZA PO SCH (09:42)
[2019-01-31 15:29] VITALS: BP 150/88
--- NOTE | 2019-02-01 06:58 | DISCHARGE SUMMARY ---
ADMISSION DATE: 01/27/2019 DISCHARGE DATE: 01/31/2019 DISCHARGE DIAGNOSES: 1. Nausea, vomiting. 2. Abdominal pain. 3. Myalgias. 4. Paresthesias. 5. Chronic anxiety, depression. 6. Opiate abuse and withdrawal. CONSULTATIONS: None. PROCEDURES: None. BRIEF HOSPITAL COURSE: The patient is a 58-year-old female who presented to [facility] program secondary to nausea, vomiting, abdominal pain. She does have chronic history of back issues with 3 previous surgeries and currently 2 bulging disks. She has started re-abusing opiates. She was in withdrawal on admission with nausea, vomiting, abdominal pain, myalgias, paresthesias. We admitted her to the hospital, placed her on Suboxone. Thankfully, she had an uneventful hospital course. On discharge, she notes that she is feeling much better. She is still having issues with anxiety and depression, but this is improving. We started her on Lexapro during the hospital. DISPOSITION: Patient will be discharged home. She will follow up outpatient with treatment facility of choice. Discussed with her that she needs outpatient life counseling as well as drug counseling. Continue Lexapro as well as Suboxone, both of which were started in the hospital. Prescriptions given on discharge. Greater than 30 minutes spent in total care. cc: Trevor Morocho MD
== END 2019-01-31 15:50 | disposition home or self-care (01) | DRG 897 ==
LOC: P.DIRADM 15:42 → P.MEDSURG 01-29 19:28
PROVIDERS: ADMIT Family Medicine; ATTEND Family Medicine

== ENCOUNTER 2019-02-22 07:30 | Inpatient (IN) ==
--- NOTE | 2019-02-22 08:40 | EKG Report ---
Test Performed on : 02/22/2019 08:21:58 AM Test Reason : DVT Blood Pressure : / mmHG Vent. Rate : 060 BPM Atrial Rate : 060 BPM P-R Int : 150 ms QRS Dur : 082 ms QT Int : 434 ms P-R-T Axes : 050 007 052 degrees QTc Int : 434 ms Normal sinus rhythm. Low voltage QRS Borderline ECG When compared with ECG of 08-NOV-2018 09:15, Vent. rate has decreased BY 49 BPM Unconfirmed Result
--- NOTE | 2019-02-22 08:42 | PROVIDER DOCUMENTATION ---
HPI-Musculoskeletal Pain/Inj - GENERAL Chief Complaint: Extremity Pain Stated Complaint: LT LEG PAIN Time Seen by Provider: 02/22/19 07:37 Source: patient - HX OF PRESENT ILLNESS-MUSKULOSKELTAL Nature of Presenting Problem: 58 y/o WF c/o Lt lower leg pain for the past 3 weeks and had US this am that showed Lt popliteal DVT. Pt denies any CP, SOB, or other pain. Quality of Pain: reports: aching, pressure Severity in ED: moderate Onset/Duration: other (3 weeks) Timing: still present, getting worse Modifying Factors: improves with: movement, palpation Any recent injury?: No Locality of Occurance: Home Similar Symptoms Previously?: No Recently seen or treated by another doctor?: Yes (PCP) - FALL INJURY Location of Pain/Injury: denies: none, head, face, mouth, neck, chest, upper extremity, hand(s), abdomen, back, pelvis, genitalia, lower extremity, feet, upper body, lower body, generalized, other Pain Radiation: denies: no radiation, arm(s), back, buttocks, chest, feet, groin, jaw, flank, legs (lower), neck, abdomen, shoulder(s), scapula, scrotal, suprapubic, legs (upper), other Reason for Fall: denies: unknown, fainted, lightheaded, lost balance, slipped, tripped, other Symptoms prior to fall:: denies: none, headache, seizure, other, fever/chills/sw eaty, chest pain, rapid heart rate, cough, diarrhea, vomiting, GI bleed, dizzy/lightheaded Injury Associated Symptoms: denies: denies symptoms, arm pain, back/neck pain, chest pain, diaphoresis, dizziness, headaches, joint pain, muscle aches, nausea, puncture wound, shortness of breath, sensory/motor loss, snap/crack/pop sensation, pain with inspiration, unable to bear weight, vomiting, weakness, trouble walking, other - BACK & NECK PAIN/INJURY Back/Neck Pain Location: denies: C-spine, T-spine, lumbar spine, sacrum, coccyx, paraspinous muscles, other Back/Neck Pain Radiation: denies: headache, shoulders, arm(s), Buttocks, Upper Legs, Lower Legs, Feet, Other Context / Method of Injury: denies: unknown, direct blow, fall, lifting, motor vehicle crash, overuse, prior injury, twisted, other Associated Symptoms: denies: denies symptoms, loss of bladder control, loss of bowel control, fever, lower back pain, muscle spasms, numbness in legs/feet, numbness in upper ext, sensory/motor loss, tingling in legs/feet, tingling in upper ext, weakness in legs/feet, weakness in upper ext, other - TRUNK INJURY Location of Injury(s)/Pain: denies: chest, abdomen, ribs, pelvis, extends to back, generalized, other Context / Method of Injury: denies: none, fall, blunt force, incision, stabbing, burn, GSW, seizure, became dizzy/fainted, MVC, recent physical stress, recent trauma history, other - HIP/PELVIS PAIN/INJURY Hip Pain Location: denies: hip (R), hip (L), pelvis, other Pain Radiation: denies: no radiation, abdomen, back, buttocks, feet, genitals, groin, flank, lower legs, periumbilical, upper legs, other Context / Method of Injury: denies: unknown, direct blow, fall, felt pop before fall, injury, motor vehicle crash, other Associated Symptoms: denies: denies symptoms, loss of bladder control, loss of bowel control, lower back pain, muscle spasms, numbness in legs/feet, sensory/motor loss, tingling in legs/feet, weakness in legs/feet, other - LOWER EXTREMITY PAIN/INJURY Lower Extremities Pain: knee: left (lt posterior knee and calf tenderness) Context / Method of Injury: reports: other (pt denies any injury) Associated Symptoms: reports: denies symptoms - UPPER EXTREMITY PAIN/INJURY Context / Method of Injury: denies: unknown, assault, burn, direct blow, fell, incised, motor vehicle accident, sports injury, twisted, other Associated Symptoms: denies: denies symptoms, muscle spasms, numbness in upper ext, sensory/motor loss, tingling in upper ext, weakness in upper ext, other Review of Systems - Adult - REVIEW OF SYSTEMS - ADULT Constitutional: reports: no symptoms reported, see HPI Eyes: reports: no symptoms reported, see HPI Ears, Nose, Mouth & Throat: reports: no symptoms reported, see HPI Cardiovascular: reports: no symptoms reported, see HPI Respiratory: reports: no symptoms reported, see HPI Gastrointestinal: reports: no symptoms reported, see HPI Genitourinary: reports: no symptoms reported, see HPI Musculoskeletal: reports: see HPI, other (lt lower leg pain) Integumentary: reports: no symptoms reported, see HPI Neurological: reports: no symptoms reported, see HPI Psychiatric: reports: no symptoms reported, see HPI Endocrine: reports: no symptoms reported, see HPI Hematologic/Lymphatic: reports: no symptoms reported, see HPI Allergic/Immunologic: reports: no symptoms reported, see HPI All Other Systems: Reviewed and Negative Past History - Adult - PAST MEDICAL HISTORY-ADULT Review of Records: reports: Nursing Assessment Review, Medications Reviewed, Social history reviewed & non-contributory. Major Childhood Illnesses: reports: denies history Cardiovascular: reports: HTN Respiratory: reports: denies history Gastrointestinal: reports: GERD Obstetrical/Gynecological: reports: ectopic , other (breast mass) Genitourinary: reports: denies history Musculoskeletal: reports: chronic pain, intervertebral disc disease, neck/back injury Neurological: reports: headaches/migraines Psychiatric: reports: anxiety, depression Endocrine/Immune: reports: thyroid disorder Other Conditions: reports: denies history - PRIOR SURGERIES/PROCEDURES Surgical/Procedure History: reports: appendectomy, cholecystectomy, hysterectomy , , hernia repair, breast - PRIOR HOSPITALIZATIONS Prior Hospitalizations: reports: for similar symptoms - IMMUNIZATION STATUS Childhood Immunizations: See Nurse Assessment Flu Vaccine: See Nurse Assessment - FAMILY HISTORY Family History: reviewed, not pertinent Physical Exam-Injury Related - Physical Exam-Injury Related Initial Vital Signs Reviewed: Yes General Appearance: appears well, alert, no apparent distress Eyes: PERRL/EOMI Head, Ears, Nose, Mouth & Throat: normocephalic/atraumatic, moist mucous membranes Neck: non-tender, full range of motion, supple, normal inspection Respiratory: chest non-tender, lungs clear, normal breath sounds, no pleuratic chest pain, no respiratory distress, no accessory muscle use Cardiovascular: normal peripheral pulses, regular rate, rhythm, no edema, no g allop, no JVD, no murmur Abdominal Exam: normal bowel sounds, non tender, soft, no organomegaly, no pulsatile mass Lymphatic: no adenopathy Back Exam: normal inspection, no CVA tenderness, no vertebral tenderness Extremity: normal range of motion, normal gait, normal inspection, no pedal edema, no calf tenderness, normal capillary refill, tenderness (to lt calf and posterior knee) Integumentary: normal color 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, grossly normal, no motor/sensory deficits Psych/Mental Status: normal mood/affect, normal thought content, normal thought process, oriented x 3 - Glascow Coma Score Best Eye Response ([place]): (4) open spontaneously Best Verbal Response ([place]): (5) oriented Best Motor Response ([place]): (6) obeys commands Progress - PLAN OF CARE/RESULTS Progress/Plan/Lab Results: Vital Signs - 8 hr 02/22/19 07:35 02/22/19 07:44 02/22/19 08:00 Temperature 97.8 F Pulse Rate 69 59 L 59 L Respiratory Rate 16 19 19 Blood Pressure 141/83 127/87 O2 Sat by Pulse Oximetry 99 97 94 L Laboratory Results - last 24 hr 02/22/19 02/22/19 02/22/19 08:38 08:38 08:38 WBC 8.52 RBC 3.75 L Hgb 12.2 Hct 36.7 L MCV 97.9 MCH 32.5 H MCHC 33.2 RDW Std Deviation 11.7 Plt Count 306 MPV 9.3 Immature Gran % (Auto) 0.2 Neut % (Auto) 55.5 Lymph % (Auto) 30.5 Schleicher % (Auto) 10.8 H Eos % (Auto) 2.2 Baso % (Auto) 0.8 Immature Gran # (Auto) 0.02 Neut # (Auto) 4.72 Lymph # (Auto) 2.60 Schleicher # (Auto) 0.92 H Eos # (Auto) 0.19 Baso # (Auto) 0.07 PT 13.3 INR 1.00 PTT (Actin FS) 31.9 Sodium 141 Potassium 3.9 Chloride 104 Carbon Dioxide 26 Anion Gap 11 BUN 15 Creatinine 0.7 Estimated GFR/1.73 m2 > 60 BUN/Creatinine Ratio 21 Glucose 87 Calculated Osmolality 281 Calcium 9.2 Total Bilirubin 0.27 AST 26 ALT 16 Alkaline Phosphatase 69 Total Protein 6.6 Albumin 3.9 Globulin 2.7 Albumin/Globulin Ratio 1.4 Orders Category Date Time Status Nursing- Obtain EKG ONCE Care 02/22/19 07:54 Active CBC WITH ELECTRONIC DIFF [HEME] Stat Lab 02/22/19 08:38 Completed COMPREHENSIVE METABOLIC PANEL [CHEM] Stat Lab 02/22/19 08:38 Completed PROTIME WITH INR [COAG] Stat Lab 02/22/19 08:38 Completed PTT [COAG] Stat Lab 02/22/19 08:38 Completed Enoxaparin 1 mg/kg [Lovenox 1 mg/kg] Med 02/22/19 09:33 Once 1 each SUBQ NOW ONE Hydromorphone [Dilaudid] Med 02/22/19 09:15 Discontinued 0.5 mg IV NOW ONE Ondansetron [Zofran] Med 02/22/19 09:15 Discontinued 4 mg IV NOW ONE EKG [EKG] Stat Ther 02/22/19 07:54 Draft Result Diagrams: 02/22/19 08:38 02/22/19 08:38 - CONSULTS/PCP/HOSPITALIST Notification #1 *Consult/PCP/Hospitalist*: Elle VULCAN CREWMEMBER for Hospitalist Consult Disposition: Will see in ED, Admit (want to be called back when all labs back.) Departure - Departure Date of Disposition Decision: 02/22/19 Time of Disposition Decision: 08:48 DIAGNOSIS: DVT (deep venous thrombosis) Disposition: ADMITTED INPATIENT 09 Certified Medical Emergency: Emergent Condition: Fair Referrals and Follow-Ups: Berhane Reyes [Primary Care Provider] - - Critical Care Note This patient required my direct & personal management of CC.: No Attestation - Physician/ BREE Attestation Patient care was provided by Advanced Practice Provider:: No The physician spent face to face time with patient:: Yes Advanced Practice Provider documentation review:: Supervising physician onsite and consulted in the evaluation and care of this patient. The physician did have a face to face encounter with the patient.
[2019-02-22 08:57] LABS: BASO# 0.07 X1000 (0.0-0.2); BASO% 0.8 % (0.0-0.8); EOS# 0.19 X1000 (0.0-0.7); EOS% 2.2 % (0.0-10.0); HEMATOCRIT 36.7 % (37.0-47.0); HEMOGLOBIN 12.2 g/dL (12.0-16.0); IMM GRAN# 0.02 X1000 (0.0-0.04); IMM GRAN% 0.2 % (0.0-0.5); LYMPH% 30.5 % (20.5-51.1); MCH 32.5 PG (27-31); MCHC 33.2 g/dL (33-37); MCV 97.9 FL (81-99); MONO# 0.92 X1000 (0.11-0.59); MONO% 10.8 % (1.7-9.3); MPV 9.3 FL (7.4-10.4); NEUT# 4.72 X1000 (1.4-6.5); NEUT% 55.5 % (42.2-75.2); PLT 306 X1000 (130-400); RBC 3.75 XMIL (4.2-5.4); RDW 11.7 % (11.5-14.5); WBC 8.52 X1000 (4.8-10.8)
[2019-02-22 09:09] LABS: PROTIME 13.3 Seconds (11.0-16.0)
[2019-02-22 09:10] LABS: PTT 31.9 Seconds (22.3-41.8)
[2019-02-22] MEDS ORDERED: ZOFRAN IV ONE (09:15)
[2019-02-22] MEDS ORDERED: DILAUDID IV ONE (09:15)
[2019-02-22 09:31] LABS: AGAP 11; ALB/GLOB RATIO 1.4; ALBUMIN 3.9 g/dL (3.5-5.0); ALKALINE PHOSPHATASE 69 U/L (32-104); BUN 15 mg/dL (8-22); CALCIUM 9.2 mg/dL (8.8-10.2); CHLORIDE 104 mmol/L (98-107); COSMO 281; CREATININE 0.7 mg/dL (0.5-0.9); ESTIMATED GFR > 60; GLUCOSE 87 mg/dL (70-104); GOT 26 U/L (10-30); GPT 16 U/L (10-36); POTASSIUM 3.9 mmol/L (3.5-5.1); SODIUM 141 mmol/L (136-145); TCO2 26 mmol/L (25-35); TOTAL BILIRUBIN 0.27 mg/dL (0.20-1.00); TOTAL PROTEIN 6.6 g/dL (6.3-8.3)
[2019-02-22] MEDS ORDERED: LOVENOX 1 MG/KG SUBQ ONE (09:33)
[2019-02-22] MEDS ORDERED: LOVENOX SUBQ ONE (09:45)
[2019-02-22] MEDS ORDERED: TORADOL IV PRN (10:01)
[2019-02-22] MEDS ORDERED: ZOFRAN IV PRN (10:01)
[2019-02-22] MEDS ORDERED: TYLENOL PO PRN (10:01)
[2019-02-22] MEDS ORDERED: PROTONIX PO ONE (10:07)
--- NOTE | 2019-02-22 10:11 | Diag Imaging Result Doc PS360 ---
EXAM: CHEST-2 VIEWS 02/22/2019 HISTORY: dvt; sob TECHNIQUE: PA and lateral chest COMMENT: There is some increased interstitial markings in the lung bases as well as linear opacities in the left lower lobe. The latter were probably present on 11/08/2018 and are probably related to fibrosis. The heart size and pulmonary vascularity are within normal limits. There is a granuloma in the right apex. IMPRESSION: No evidence of acute disease. Electronically signed by Deondre Ramos 02/22/2019 10:09 AM
[2019-02-22] MEDS ORDERED: SUBOXONE 8 MG/2 MG FILM SL SCH (10:15)
--- NOTE | 2019-02-22 13:48 | HISTORY AND PHYSICAL ---
PRIMARY CARE PROVIDER: DR. Reyes. CHIEF COMPLAINT: Left lower extremity pain behind the knee down the calf. HISTORY OF PRESENT ILLNESS: Ms. Kiarra Duffy is a 58-year-old female with a medical history of chronic back pain, hypertension, anxiety, depression, opioid abuse and withdrawal, and hypothyroidism who is actually most recently admitted here mid January, was treated by Dr. Morocho and started on Suboxone for opioid abuse and withdrawal. 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 However, she is on hormone replacement therapy and she does smoke cigarettes. She went to Dr. Reyes, who sent her for a left lower extremity ultrasound in which she was found with a left popliteal DVT. Symptoms apparently have been going on for the last 3 weeks. So, she will be started on Lovenox weight-based therapy. Will admit to the medical floor. PAST MEDICAL HISTORY: 1. Chronic back pain. 2. Hypertension. 3. Anxiety, depression. 4. Chronic constipation secondary to opioid use. 5. Hypothyroidism. 6. Seasonal allergies. 7. History of mastitis. 8. Hyperlipidemia. 9. GERD. SURGICAL HISTORY: 1. L1, L3, L5 and the tailbone surgical repair. 2. Cholecystectomy. 3. Thyroidectomy. 4. Breast biopsy. 5. section. 6. Left inguinal hernia repair. 7. Bilateral tubal ligation. 8. Appendectomy. SOCIAL HISTORY: She is a half pack per day smoker since the age of 40. Used to drink 3 or 4 times a week, but quit around 3 years ago. Denies any illicit drug use. . 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 Denies having a sedentary lifestyle. FAMILY HISTORY: Mother's side of family: Mother had type 1 diabetes mellitus, alcoholism and from a brain aneurysm at the age of 52. Father had coronary artery disease requiring bypass surgery. He at the age of 99. ALLERGIES: No known drug allergies. HOME MEDICATIONS: 1. Cyanocobalamin intramuscular on the of each month. 2. Cyclobenzaprine HCL 10 mg p.o. twice a day p.r.n. 3. Diclofenac sodium 75 mg p.o. twice a day p.r.n. 4. Doxepin HCL 10 mg p.o. daily. 5. Atorvastatin 20 mg p.o. daily. 6. Lorazepam 2 mg p.o. three times a day. 7. Protonix 20 mg p.o. daily. 8. Premarin 1.25 mg p.o. daily. 9. Lisinopril 10 mg p.o. daily. 10. Robaxin 500 mg p.o. twice daily. 11. Synthroid 125 mcg p.o. daily. 12. Neurontin 300 mg p.o. twice a day. 13. Lexapro 10 mg p.o. daily. 14. Suboxone 8 mg/2 mg one sublingual twice a day. REVIEW OF SYSTEMS: Fourteen point review of systems are complete and all are negative, except for those mentioned above in the HPI. PHYSICAL EXAMINATION: VITAL SIGNS: Temperature 98.4 degrees, heart rate 72, respiratory rate 18, blood pressure 126/82, O2 saturation 94% on room air. She is 5 feet 4 inches tall, 184 pounds. BMI is 31.6. GENERAL: Kiarra Duffy is a 58-year-old female. She is in no acute distress. She is able to answer questions appropriately. HEENT: Atraumatic, normocephalic. Pupils equal, round, reactive to light. Extraocular movements intact. Mucous membranes are moist. NECK: Trachea midline. CARDIOVASCULAR: S1, S2. Regular rate and rhythm. No rubs, gallops, murmurs. Trace lower extremity edema. +2 dorsalis and radial pulses. Negative JVD or carotid bruits. PULMONARY: Clear to auscultation. Bilateral breath sounds. No accessory muscle use or work of breathing noted. GI: Soft, nontender, nondistended. Positive bowel sounds x4. EXTREMITIES: Moves all extremities equally. Full range of motion. Mild puffiness around the left calf area. NEUROLOGIC: A and O x3. Follows commands. Sensory is intact. SKIN: Warm, dry, intact. LABORATORY DATA: White blood cells 8000, hemoglobin 12, hematocrit 36, platelet count 306. INR is 1. PTT is 31.9. Sodium 141, potassium 3.9, BUN 15, creatinine 0.7, glucose 87, calcium at 9.2. Bilirubin 0.27, AST 26, ALT 16, albumin is 3.9. IMAGING STUDIES: Chest x-ray: No evidence of acute disease. EKG: Normal sinus rhythm, rate 60, QTc is 434. Lower extremity Doppler: Not available to view at this time, but there is a report of a left popliteal DVT. ASSESSMENT AND PLAN: 1. Left popliteal deep vein thrombosis, likely secondary to inactivity, hormone replacement therapy and smoking. Currently will be placed on weight-based Lovenox twice a day. Will eventually transition to oral dosing prior to discharge. Denies any symptoms of shortness of breath. 2. Chronic back pain with complaints of acute pain in the left lower extremity. We will do Toradol for now. We will continue her sublingual Suboxone for pain control. 3. Hypertension. Continue lisinopril. 4. Hormone replacement therapy is going to be held. 5. Hypothyroidism. Continue Synthroid. 6. Depression. Continue Lexapro. 7. Anxiety. Continue Ativan and doxepin for sleep at night. 8. Gastroesophageal reflux disease. Continue Protonix. 9. Deep venous thrombosis prophylaxis. She is actually going to be on weight- based Lovenox for an actual deep vein thrombosis in the left lower extremity. 10. Tobacco abuse. Cessation discussed. Dictated by ANDRES Aleman for Jose Peacock MD Addendum: Patient seen and examined by myself. Agree with ANDRES note. It reflects my assessment and plan. Patient is being admitted for DVT. I do not agree with criteria for admission from ER doctor because we can treat DVT with oral anticoagulants. She does not have any signs or symptoms of respiratory distress so I am not suspecting any PE. She has been started with Lovenox. Will switch to Xarelto tomorrow and be discharged. cc: MD Elle Seymour CRNP Cesar Garcia-Rodriguez, MD [facility]
[2019-02-22] MEDS: ATIVAN PO SCH ×2 (14:16→20:40)
[2019-02-22] MEDS: LEXAPRO PO SCH (16:52)
[2019-02-22] MEDS: PRINIVIL PO SCH (16:52)
[2019-02-22] MEDS: NEURONTIN PO SCH ×2 (16:52→20:33)
[2019-02-22] MEDS: ROBAXIN PO SCH ×2 (16:53→20:33)
[2019-02-22] MEDS: DILAUDID IV PRN ×2 (17:10→22:27)
[2019-02-22] MEDS: LOVENOX SUBQ SCH (20:33)
[2019-02-22] MEDS ORDERED: LIPITOR PO SCH (21:00)
[2019-02-22] MEDS ORDERED: SINEQUAN PO SCH (21:00)
[2019-02-23] MEDS: DILAUDID IV PRN ×4 (02:39→14:47)
[2019-02-23] MEDS ORDERED: PROTONIX PO SCH (07:00)
[2019-02-23] MEDS ORDERED: SYNTHROID PO SCH (07:00)
[2019-02-23 07:03] LABS: BASO# 0.09 X1000 (0.0-0.2); BASO% 1.6 % (0.0-0.8); EOS# 0.19 X1000 (0.0-0.7); EOS% 3.3 % (0.0-10.0); HEMATOCRIT 35.4 % (37.0-47.0); HEMOGLOBIN 11.5 g/dL (12.0-16.0); LYMPH# 2.75 X1000 (1.2-3.4); LYMPH% 47.7 % (20.5-51.1); MCHC 32.5 g/dL (33-37); MCV 98.6 FL (81-99); MONO# 0.63 X1000 (0.11-0.59); MONO% 10.9 % (1.7-9.3); MPV 9.7 FL (7.4-10.4); NEUT% 36.5 % (42.2-75.2); PLT 314 X1000 (130-400); RBC 3.59 XMIL (4.2-5.4); RDW 11.7 % (11.5-14.5); WBC 5.76 X1000 (4.8-10.8)
[2019-02-23 07:10] LABS: PROTIME 13.3 Seconds (11.0-16.0)
[2019-02-23 07:11] LABS: PTT 37.5 Seconds (22.3-41.8)
[2019-02-23 07:27] LABS: AGAP 9; ALB/GLOB RATIO 1.8; ALBUMIN 3.5 g/dL (3.5-5.0); ALKALINE PHOSPHATASE 62 U/L (32-104); BUN 16 mg/dL (8-22); CALCIUM 8.3 mg/dL (8.8-10.2); CHLORIDE 102 mmol/L (98-107); CK TOTAL 44 U/L (24-173); COSMO 272; CREATININE 0.7 mg/dL (0.5-0.9); ESTIMATED GFR > 60; GLUCOSE 82 mg/dL (70-104); GOT 20 U/L (10-30); GPT 13 U/L (10-36); POTASSIUM 3.8 mmol/L (3.5-5.1); SODIUM 136 mmol/L (136-145); TCO2 25 mmol/L (25-35); TOTAL BILIRUBIN 0.17 mg/dL (0.20-1.00); TOTAL PROTEIN 5.4 g/dL (6.3-8.3)
[2019-02-23 08:17] VITALS: BP 113/52
[2019-02-23] MEDS: LOVENOX SUBQ SCH (10:13)
[2019-02-23] MEDS: PRINIVIL PO SCH (10:13)
[2019-02-23] MEDS: ROBAXIN PO SCH (10:14)
[2019-02-23] MEDS: NEURONTIN PO SCH (10:14)
[2019-02-23] MEDS: LEXAPRO PO SCH (10:14)
[2019-02-23] MEDS: ATIVAN PO SCH ×2 (10:14→14:48)
--- NOTE | 2019-02-24 11:12 | DISCHARGE SUMMARY ---
ADMISSION DATE: 02/22/2019 DISCHARGE DATE: 02/23/2019 DISCHARGE DIAGNOSES: 1. Deep venous thrombosis in the left popliteal vein. 2. Chronic back pain. 3. Hypertension. 4. Hormone replacement. 5. Hypothyroidism. 6. Depression. 7. Anxiety. CONSULTATIONS: None. PROCEDURES: None. HOSPITAL COURSE: In brief, this is a 58-year-old, female with a past medical history of chronic back pain, hypertension, anxiety, and depression. She went to see Dr. Reyes, her primary care doctor, for left lower extremity pain. An ultrasound was ordered which showed left pretibial DVT. For unknown reasons, the ER doctor decided to call for admission. The patient was placed on Lovenox since admission. We explained that patients with these medical conditions like a deep venous thrombosis, we do not need to admit patients. In any case, we decided to start Xarelto on this patient. The patient was feeling fine. Of course, the patient was discharged the next day in a stable condition. DISCHARGE PHYSICAL EXAMINATION: Vital Signs: Temperature 97.4 degrees, heart rate 68, respiratory rate 14, blood pressure 113/52, O2 saturation 98% on room air. General Examination: This is a 58-year-old, female lying in bed, in no acute distress. Cardiovascular Examination: S1 and S2 heard. No murmurs, gallops, or rubs. Regular rate and rhythm. Respiratory Examination: Clear bilaterally to auscultation. No work of breathing or using accessory muscles. Abdomen: Soft, nontender to palpation. Bowel sounds present. No organomegaly. Extremities: No clubbing, cyanosis, or edema. Peripheral pulses present in both legs. Neurological Examination: The patient is alert and oriented x3. Moves 4 extremities. DISCHARGE DISPOSITION: Home to self-care. LIST OF MEDICATIONS: Xarelto 15 mg p.o. b.i.d. for 21 days, then Xarelto 10 mg p.o. daily for at least 6 months. FOLLOWUP: With his primary care doctor in a week. DISCHARGE TIME: Thirty minutes. cc: Jose Peacock MD
== END 2019-02-23 16:38 | disposition home or self-care (01) | DRG 301 ==
LOC: ED 07:30 → SUATTDRO 10:06 → EDIPHOLD 10:06 → 3N 13:24
PROVIDERS: ATTEND Internal Medicine